=== PATIENT | female | born 1970 | race Caucasian/White ===

== ENCOUNTER 2019-10-13 09:17 | Emergency (ER) | payer OTHER ==
[~2019-10-13] VITALS: Ht 154.9 cm; Wt 72.6 kg
[2019-10-13] MEDS ORDERED: PRILOSEC OTC20 MG PO (09:35)
[2019-10-13] MEDS ORDERED: FOLIC ACID1 MG PO (09:37)
[2019-10-13] MEDS ORDERED: IRON 100-VITAM1 EACH PO (09:37)
[2019-10-13] MEDS ORDERED: VITAMIN B-1250 MC2 PO (09:38)
[2019-10-13 09:49] LABS: ABSOLUTE BASOPHILS 0.1 thou/uL (0.0-0.2); ABSOLUTE EOSINOPHILS 0.1 thou/uL (0.0-0.7); ABSOLUTE LYMPHOCYTES 2.6 thou/uL (0.8-5.3); ABSOLUTE MONOCYTES 0.7 thou/uL (0.0-1.2); ABSOLUTE NEUTROPHILS 6.7 thou/uL (1.6-8.1); BASOPHILS 1.3 %; EOSINOPHILS 1.2 %; HEMATOCRIT 47.7 % (37.0-47.0); HEMOGLOBIN 16.5 gm/dL (12.0-15.0); LYMPHOCYTES 25.7 %; MCH 30.3 pg (26.0-34.0); MCHC 34.6 g/dL (28.0-37.0); MCV 87.7 fL (80.0-100.0); MONOCYTES 6.8 %; MPV 8.9 fl. (7.2-11.1); NUCLEATED RBCS 0 /100WBC; PLATELET COUNT* 275 thou/uL (150-400); RBC 5.44 mil/uL (4.20-5.00); RDW-CV 23.4 % (10.5-14.5); WBC 10.3 thou/uL (4.0-11.0)
[2019-10-13 09:54] LABS: CALCIUM 8.1 mg/dL (8.5-10.1); CREATININE 0.9 mg/dL (0.6-1.3); POTASSIUM 3.6 mmol/L (3.5-5.1)
[2019-10-13 10:04] LABS: ALBUMIN 3.7 g/dL (3.4-5.0); TOTAL BILIRUBIN 0.3 mg/dL (<0.1-1.0); TOTAL PROTEIN 7.3 g/dL (6.4-8.2)
[2019-10-13 10:49] LABS: PLATELET ESTIMATE ADEQUATE
[2019-10-13 10:50] LABS: ANISOCYTOSIS 1+; POIKILOCYTOSIS 1+
[2019-10-13 10:51] LABS: HYPOCHROMASIA 1+
[2019-10-13 12:08] VITALS: BP 149/101
--- NOTE | 2019-10-13 15:52 | EKG ---
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1970 Requested By: Norm Hall Order Number: [id number] MD: José Haro Measurements Intervals [place] Rate: 257 P: 261 MN: 100 QRS: 81 QRSD: 79 T: 63 QT: 243 QTc: 503 Interpretive Statements Supraventricular tachycardia ST depression, probably rate related Baseline wander in lead(s) I,V1,V2,V3,V4 No previous ECG available for comparison Electronically Signed On 10-13-2019 15:52:10 COMMERCIAL REAL ESTATE LENDER by José Haro [email or web address] <ELECTRONICALLY SIGNED> By: José Haro MD, [facility] 10/13/19 1552 3 3 José Haor MD, FAC /EPI
--- NOTE | 2019-10-13 15:53 | EKG ---
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 : 1970 Requested By: Norm Hall Order Number: [id number] MD: José Haro Measurements Intervals [place] Rate: 119 P: 69 OK: 125 QRS: 103 QRSD: 124 T: 15 QT: 333 QTc: 469 Interpretive Statements Sinus tachycardia Nonspecific intraventricular conduction delay Probable septal infarct, old ST depr, consider ischemia, inferior leads Electronically Signed On 10-13-2019 15:53:28 TIME CLOCK REPAIRER by José Haro [email or web address] <ELECTRONICALLY SIGNED> By: José Haro MD, [facility] 10/13/19 1553 09 0 José Haro MD, FACC /EPI
== END 2019-10-13 12:08 | disposition left against medical advice (07) ==
LOC: M.ERS 09:17
PROVIDERS: Emergency Medicine Emergency Medical Services
DX: I47.1 Supraventricular tachycardia (principal); F17.210 Nicotine dependence, cigarettes, uncomplicated; Z86.2 Personal history of diseases of the blood and blood-forming organs and certain disorders involving the immune mechanism; Z88.6 Allergy status to analgesic agent; Z88.5 Allergy status to narcotic agent

== ENCOUNTER 2019-10-21 17:46 | Emergency (ER) | payer OTHER ==
[~2019-10-21] VITALS: Ht 154.9 cm; Wt 72.6 kg
[~2019-10-21 17:46] MED LIST: FOLIC ACID1 MG PO; IRON 100-VITAM1 EACH PO; PRILOSEC OTC20 MG PO; VITAMIN B-1250 MC2 PO
[2019-10-21] MEDS ORDERED: CELECOXIB100 MG PO (17:57)
[2019-10-21] MEDS ORDERED: ALLER-TEC D 5-1 EACH PO (17:57)
[2019-10-21] MEDS ORDERED: BLISOVI 24 FE1 EACH PO (17:58)
[2019-10-21] MEDS ORDERED: TOPROL XL50 MG PO (18:28)
[2019-10-21 18:52] VITALS: BP 162/101
--- NOTE | 2019-10-22 16:55 | EKG ---
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1970 Requested By: Theo Mazariegos Order Number: [id number] MD: Popeye Diggs Measurements Intervals [place] Rate: 112 P: 68 SD: 113 QRS: 66 QRSD: 111 T: 24 QT: 344 QTc: 470 Interpretive Statements Sinus tachycardia Left atrial enlargement, possible Compared to ECG 10/13/2019 09:31:45 Intraventricular conduction delay no longer present Myocardial infarct finding no longer present Possible ischemia no longer present Electronically Signed On 10-22-2019 16:54:50 ELECTRIC SIGN WIRER by Popeye Diggs [email or web address] <ELECTRONICALLY SIGNED> By: Popeye Diggs MD, [facility] 10/22/19 1654 1751 175 Popeye Diggs MD, [facility] /EPI
== END 2019-10-21 18:53 | disposition home or self-care (01) ==
LOC: M.ERS 17:46
DX: I47.1 Supraventricular tachycardia (principal); F17.210 Nicotine dependence, cigarettes, uncomplicated; Z86.2 Personal history of diseases of the blood and blood-forming organs and certain disorders involving the immune mechanism; Z88.6 Allergy status to analgesic agent

== ENCOUNTER 2021-03-27 21:27 | Emergency (ER) | payer OTHER ==
[~2021-03-27] VITALS: Ht 157.5 cm; Wt 75.8 kg
[~2021-03-27 21:27] MED LIST changes: +ALLER-TEC D 5-1 EACH PO; +BLISOVI 24 FE1 EACH PO; +CELECOXIB100 MG PO; +TOPROL XL50 MG PO
[2021-03-27] MEDS ORDERED: MAGNESIUM400 MG PO (21:48)
[2021-03-27] MEDS ORDERED: CHLORTHALIDONE25 MG PO (21:48)
[2021-03-27] MEDS ORDERED: ZYRTEC10 M5 PO (21:50)
[2021-03-27] MEDS ORDERED: HYDROCODON-ACE1 EAC8 PO (23:04)
[2021-03-27 23:37] VITALS: BP 139/87
== END 2021-03-27 23:38 | disposition home or self-care (01) ==
LOC: M.ERS 21:27
DX: S82.492A Other fracture of shaft of left fibula, initial encounter for closed fracture (principal); M25.562 Pain in left knee; F17.210 Nicotine dependence, cigarettes, uncomplicated; Z86.2 Personal history of diseases of the blood and blood-forming organs and certain disorders involving the immune mechanism; Z88.6 Allergy status to analgesic agent; Z88.5 Allergy status to narcotic agent; W01.0XXA Fall on same level from slipping, tripping and stumbling without subsequent striking against object, initial encounter; Y93.89 Activity, other specified; Y92.89 Other specified places as the place of occurrence of the external cause; Y99.8 Other external cause status